=== PATIENT | female | born 1970 | race Caucasian/White ===

== ENCOUNTER 2018-12-27 15:56 | Inpatient (IN) ==
[2018-12-27] MEDS ORDERED: METOCLOPRAMIDE HCL 5 MG/ML VIAL IV ONE (16:10)
[2018-12-27] MEDS ORDERED: diphenhydrAMINE HCL 50 MG/ML VIAL IV ONE (16:10)
[2018-12-27] MEDS ORDERED: NORMAL SALINE 1,000 ML IV ONE ×2 (16:10→17:00)
--- NOTE | 2018-12-27 16:14 | ERNOTE ---
<[email or web address] - Last Filed: 12/27/18 19:44> Abdominal HPI - General Chief Complaint: Abdominal Pain Time Seen by Provider: 12/27/18 16:05 Source: patient, family Exam Limitations: no limitations - Immun/Allergies/Home Medications Immunizatons: IMMUNIZATION HX Immunizations Up to Date Yes Allergies/Adverse Reactions: Allergies codeine Allergy (Verified 12/27/18 18:24) egg Allergy (Verified 12/27/18 18:24) ibuprofen Allergy (Verified 12/27/18 18:24) latex Allergy (Verified 12/27/18 18:24) NSAIDS (Non-Steroidal Anti-Inflamma Allergy (Verified 12/27/18 18:24) peanut Allergy (Verified 12/27/18 18:24) sulfamethoxazole [From Septra] Allergy (Verified 12/27/18 18:24) tetracycline [Tetracycline] Allergy (Verified 12/27/18 18:24) trimethoprim [From Novra] Allergy (Verified 12/27/18 18:24) wheat Allergy (Verified 12/27/18 18:24) Home Medications: HOME MEDICATIONS Aspirin [Aspirin Chewable] 81 mg PO DAILY 08/06/13 [Last Taken Unknown] Hydrochlorothiazide 25 mg PO DAILY 08/06/13 [Last Taken Unknown] Levothyroxine Sodium [Synthroid] 50 mcg PO DAILY 08/06/13 [Last Taken Unknown] Montelukast Sodium [Singulair] 10 mg PO DAILY 08/06/13 [Last Taken Unknown] Multivitamin [Multi Vitamin Daily] 1 each PO DAILY 08/06/13 [Last Taken Unknown] Loratadine [Claritin] 10 mg PO DAILY 12/27/18 [Last Taken Unknown] Pantoprazole Sodium [Protonix] 40 mg PO DAILY 12/27/18 [Last Taken Unknown] Semaglutide [Ozempic] 0.5 mg SQ .WEEKLY 12/27/18 [Last Taken Unknown] - History of Present Illness Narrative: Patient was eating supper at a restaurant and had a relatively sudden and sharp abdominal pain in the lower abdomen down to the suprapubic region. She rates the pain as severe and has accompanying nausea and vomiting with it. Timing: constant, intermittent Quality: severe, sharpness Activities at Onset: none Associated Symptoms: Present: nausea, vomiting Prior Abdominal Problems: Present: none Review of Systems - Review of Systems Constitutional: Present: See HPI EYE: Present: no symptoms reported ENT: Present: no symptoms reported Respiratory: Present: no symptoms reported Cardiology: Present: no symptoms reported Gastrointestinal/Abdominal: Present: See HPI Genitourinary: Present: no symptoms reported Musculoskeletal: Present: no symptoms reported Skin: Present: no symptoms reported Neurological: Present: no symptoms reported Endocrine: Present: no symptoms reported Hematologic/Lymphatic: Present: no symptoms reported Psych: Present: no symptoms reported Medical History (Updated 12/27/18 @ 16:13 by Ruiz Contreras DO) H/O: hysterectomy Surgical History: Surgical History (Updated 12/27/18 @ 16:13 by Ruiz Contreras DO) History of appendectomy History of cholecystectomy Social History: Tobacco: Smoking Status: Never smoker Physical Exam - Physical Exam General Appearance: Present: wd/wn, alert, moderate distress, severe distress Head Exam: Present: normal inspection, no evidence of injury Eye Exam: Normal inspection: bilateral, PERRL: bilateral Ears, Nose, Throat: Present: normal ENT inspection, H, normal pharynx Neck: Present: normal inspection, nontender Respiratory: Present: no respiratory distress, normal breath sounds, no accessory muscle use, chest nontender, lungs clear Cardiovascular/Chest: Present: regular rate, rhythm, no murmur, normal peripheral pulses Gastrointestinal/Abdominal: Present: normal bowel sounds, nondistended, soft, no organomegaly, tenderness - Lower abdominal and suprapubic region Rectal Exam: Present: deferred Back Exam: Present: normal inspection, normal range of motion Extremity Exam: Present: normal inspection, non-tender, no edema, normal range of motion Neurological Exam: Present: alert, oriented, normal mood/affect Skin Exam: Present: normal color, warm/dry Lymphatic Exam: Present: no adenopathy Progress - Results and Orders Patient's Lab Results:: I have reviewed the patient's lab results. - Vital Signs Patient's Vital Signs:: I have reviewed the patient's vital signs. Vital Signs: Vital Signs 12/27/18 16:02 12/27/18 16:08 Temperature 36.8 C Pulse Rate 72 Respiratory Rate 14 Blood Pressure 76/52 L 133/64 O2 Sat by Pulse Oximetry 99 - X-Ray X-Ray #1 X-Ray: abdomen Interpretation: Reviewed by me - Progress/Reassessment Chief Complaint: Abdominal Pain - Transfer of Care Physician Sign Out: Ruiz Contreras Receiving Physician: Jose Jones Expected Disposition: Discharge Plan - Plan Plan: Patient turned over to Dr. Jones for final disposition Departure Clinical Impression: Colitis, Intractable abdominal pain, Intractable nausea and vomiting - Departure Disposition: Still a patient Condition: Stable <Jose Jones - Last Filed: 12/27/18 22:35> Abdominal HPI - Immun/Allergies/Home Medications Immunizatons: IMMUNIZATION HX Immunizations Up to Date Yes Medical History (Updated 12/27/18 @ 21:43 by Jose Jones DO) H/O: hysterectomy Surgical History: Surgical History (Updated 12/27/18 @ 16:13 by Ruiz Contreras DO) History of appendectomy History of cholecystectomy Social History: Tobacco: Smoking Status: Never smoker Physical Exam - Physical Exam General Appearance: Present: wd/wn, alert, moderate distress Gastrointestinal/Abdominal: Present: normal bowel sounds, tenderness - More lower abdominal but pain throughout the colon Neurological Exam: Present: alert, oriented Skin Exam: Present: normal color, warm/dry Progress - Results and Orders Patient's Lab Results:: I have reviewed the patient's lab results. - Vital Signs Patient's Vital Signs:: I have reviewed the patient's vital signs. Vital Signs: Vital Signs 12/27/18 16:02 12/27/18 16:08 12/27/18 16:30 Temperature 36.8 C Pulse Rate 72 89 Respiratory Rate 14 19 Blood Pressure 76/52 L 133/64 130/59 O2 Sat by Pulse Oximetry 99 97 12/27/18 17:00 12/27/18 17:31 12/27/18 18:00 Temperature Pulse Rate 76 70 71 Respiratory Rate 11 L 18 15 Blood Pressure 125/70 131/53 128/68 O2 Sat by Pulse Oximetry 96 96 98 12/27/18 19:10 12/27/18 20:20 12/27/18 21:04 Temperature Pulse Rate 64 70 70 Respiratory Rate 15 23 H 15 Blood Pressure 108/50 127/36 132/79 O2 Sat by Pulse Oximetry 94 95 97 - CT/Ultrasound CT/Ultrasound Narrative: CT abdomen pelvis with IV and oral contrast. Mild pancolitis infectious versus inflammatory - Progress/Reassessment Progress:: Improved Progress Note-Subjective: 12/27/18 21:35 I spoke with the patient about her history of when she has been diagnosed with is irritable bowel syndrome but also had precancerous polyps and has had multiple colonoscopies. The last to 2 years ago and 2 to 3 years before that have been clear. I asked her if she has had any biopsies concerning for inflammatory bowel or celiac and she did not believe she had. She states she did have blood tests for celiac with her digital tech 2 to 3 years ago and states her digital tech was surprised that she did not have positive blood test for celiac. I talked to her about being admitted being n.p.o. and continue on pain meds and antinausea meds and patient agreed. Spoke with Dr. Martinez and he agrees with observation admit for pain control and nausea control.
[2018-12-27 16:39] LABS: Hematocrit 44.9 % (37.0-47.0); Hemoglobin 15.3 gm/dL (12.5-16.0); Mean Cell Volume 90.2 fl (78-100); Mean Corpuscular Hemoglobin 30.7 pg (27-31); Mean Corpuscular Hgb Conc 34.1 g/dl (32-36); Mean Platelet Volume 10.9 fl (8-12.5); Neutrophil # 13.8 K/mm3 (1.3-6.0); Neutrophil % 84.3 % (42-75.0); Platelet Count 299 K/mm3 (150-450); Red Blood Count 4.98 M/mm3 (4.2-5.4); Red Cell Distribution Width 13.3 % (11.5-14.0); White Blood Count 16.4 K/mm3 (4.0-10.5)
[2018-12-27 16:40] LABS: Urine Bilirubin Negative (NEGATIVE); Urine Blood Negative /ul (NEGATIVE); Urine Ketone 50 mg/dL (NEGATIVE); Urine Nitrite Negative (NEGATIVE); Urine Protein Negative (NEGATIVE); Urine Urobilinogen Normal (NORMAL)
[2018-12-27 16:46] LABS: Urine Appearance Cloudy (CLEAR); Urine Color Yellow
[2018-12-27 16:47] LABS: Urine Bacteria 1+; Urine RBC None Seen /hpf (0-5); Urine WBC 0-5 /hpf (0-5)
[2018-12-27 16:52] LABS: Anion Gap 11.8 mmol/L (6.8-13.8); BUN/Creatinine Ratio 9.9 (9.0-21.6); Bilirubin, Total 0.6 mg/dL (0.0-1.1); Ca. Corrected For Albumin 8.9 mg/dL (8.4-10.2); Calcium * 9.2 mg/dL (7.9-10.9); Magnesium 2.1 mg/dL (1.2-2.8); Potassium 2.8 mmol/L (3.4-4.6); Total Protein 7.8 gm/dL (6.2-8.2)
[2018-12-27] MEDS ORDERED: DIATRIZOATE MEGLUMINE, SODIUM 30 ML BTL PO ONE (16:52)
[2018-12-27] MEDS ORDERED: ONDANSETRON HCL/PF 2 MG/ML VIAL IV ONE ×2 (17:33→18:17)
[2018-12-27] MEDS ORDERED: MORPHINE SULFATE 4 MG/ML SYRG IV ONE (18:17)
[2018-12-27] MEDS ORDERED: MORPHINE SULFATE 2 MG/ML DISP.SYRIN IV ONE (21:06)
[2018-12-27] MEDS ORDERED: PROCHLORPERAZINE EDISYLATE 5 MG/ML VIAL IV ONE (21:06)
[2018-12-27] MEDS ORDERED: MORPHINE SULFATE 2 MG/ML DISP.SYRIN IV PRN (21:50)
[2018-12-27] MEDS: NORMAL SALINE 1,000 ML IV PRN (21:58)
[2018-12-27] MEDS ORDERED: ONDANSETRON HCL/PF 2 MG/ML VIAL IV PRN (23:12)
[2018-12-28] MEDS: NORMAL SALINE 1,000 ML IV PRN ×2 (03:07→08:47)
--- NOTE | 2018-12-28 10:58 | HP ---
Chief Complaint - Chief Complaint Date of Service: 12/28/18 Time of Service: 10:47 Chief Complaint: abdominal pain, nausea/vomiting History of Present Illness: 48-year-old female with history of [id number] diabetes presented to the ER yesterday evening for abrupt onset abdominal pain. Patient started having nausea and vomiting with the onset of the pain in the afternoon following a meal. She has had significant GI work-up in the past for possible celiac disease versus other allergies and thinks she has a history of IBS which has not officially been diagnosed but otherwise is fairly healthy. CT scan of the ER showed her to have a mild diffuse bowel wall thickening without perforation consistent with inflamed bowel. Unsure if the inflammation is caused from infectious versus autoimmune versus allergy the patient is starting to feel better currently when seen today. She still has significant tenderness to her abdomen but is no longer nauseous and vomited and is not vomiting. Labs showed her to have an elevated white count 16.4 with a left shift to 84%. She was also found to be hypokalemic at 2.8. Her vital signs are stable and she has been afebrile. She has not had a bowel movement in 3 days, she denies diarrhea. No blood in her stool with her last bowel movement. Medical History (Updated 12/27/18 @ 23:16 by Nu Medina RN) Allergic to eggs Food allergy, peanut Hx of diabetes mellitus Wheat allergy Surgical History: Surgical History (Updated 12/27/18 @ 23:18 by Nu Medina RN) H/O: hysterectomy (Acute) Delivery by section History of appendectomy History of cholecystectomy History of sinus surgery Family History: Family History (Updated 12/27/18 @ 22:49 by Nu Medina RN) Father Hypertension Other COPD (chronic obstructive pulmonary disease) Social History: (Last Reviewed 12/27/18 @ 22:53 by Nu Medina RN) Tobacco: Smoking Status: Never smoker Review Of Systems (GEN) - Review of Systems Generalized/Overall Review: Absent: Chills, Fever EENTM: Present: No Symptoms Reported Respiratory: Absent: Cough, Shortness of Breath Cardiac: Present: Other - Chest pressure. Absent: Chest Pain, Edema, Palpitations Abdominal: Present: Nausea, Vomiting, Abdominal Pain, Constipation. Absent: Hematemesis, Diarrhea, Melena, Bright blood from rectum Genitourinary: Absent: Burning - Not, Itching, Urgency, Frequency - Plan April Musculoskeletal: Present: No Symptoms Reported Neurological: Absent: Headache - is okay I will thank you Skin: Present: No Symptoms Reported Endocrine: Present: No Symptoms Reported Immunizations: IMMUNIZATION HX Immunizations Up to Date Yes Allergies/Adverse Reactions: Allergies Allergy/AdvReac Type Severity Reaction Status Date / Time codeine Allergy Severe Vomiting Verified 12/27/18 22:38 egg Allergy Severe Vomiting Verified 12/27/18 22:38 ibuprofen Allergy Severe Vomiting Verified 12/27/18 22:38 NSAIDS (Non-Steroidal Allergy Severe Vomiting Verified 12/27/18 22:38 Anti-Inflamma peanut Allergy Severe Vomiting Verified 12/27/18 22:38 sulfamethoxazole Allergy Severe Hives Verified 12/27/18 22:38 [From ] tetracycline [Tetracycline] Allergy Severe Hives Verified 12/27/18 22:38 trimethoprim [From ] Allergy Severe Hives Verified 12/27/18 22:38 wheat Allergy Severe Vomiting Verified 12/27/18 22:38 latex Allergy Intermediate Hives Verified 12/27/18 22:38 Home Medications: HOME MEDICATIONS Aspirin [Aspirin Chewable] 81 mg PO DAILY 08/06/13 [Last Taken 12/27/18] Hydrochlorothiazide 25 mg PO DAILY 08/06/13 [Last Taken 12/27/18] Levothyroxine Sodium [Synthroid] 50 mcg PO DAILY 08/06/13 [Last Taken 12/27/18] Montelukast Sodium [Singulair] 10 mg PO DAILY PRN 08/06/13 [Last Taken Unknown] Multivitamin [Multi Vitamin Daily] 1 each PO DAILY 08/06/13 [Last Taken 12/27/18] Loratadine [Claritin] 10 mg PO DAILY 12/27/18 [Last Taken 12/27/18] Pantoprazole Sodium [Protonix] 40 mg PO DAILY 12/27/18 [Last Taken 12/27/18] Semaglutide [Ozempic] 0.5 mg SQ .WEEKLY 12/27/18 [Last Taken Unknown] Exam - Exam Vital Signs: Vital Signs - Last Taken Temp 37.1 C 12/28/18 06:40 Pulse 80 12/28/18 06:40 Resp 18 12/28/18 06:40 BP 125/63 12/28/18 06:40 Pulse Ox 92 L 12/28/18 06:40 Constitutional: Present: Alert, Oriented x3, Cooperative, Obese ENT Exam: Present: hearing grossly normal. Absent: nasal drainage, pharyngeal erythema Eye Exam: bilateral eye: normal inspection, PERRL Neck: Present: non-tender, full range of motion, supple Back Exam: Present: normal inspection, no CVA tenderness Breasts: Present: Exam deferred Respiratory: Present: lungs clear, normal breath sounds, no respiratory distress Cardiovascular/Chest: Present: normal peripheral pulses, regular rate, rhythm, no murmur Abdomen: Present: Normal bowel sounds, soft, tender - Diffusely tender. Absent: guarding /Rectal: Present: Exam deferred Skin Exam: Present: normal color, warm/dry Appearance: Present: appropriate appearance, appropriate insight, neat Eye contact: Present: cooperative, good eye contact Thoughts: Present: normal thought pattern, normal mood /affect Diagnostic Studies: Abnormal Lab Results 12/27/18 12/27/18 12/27/18 Range/Units 16:24 16:33 16:33 WBC 16.4 H (4.0-10.5) K/mm3 Immature Gran % (Auto) 0.60 H (0.001-0.429) % Immature Gran # (Auto) 0.10 H (0.000-0.0310) K/mm3 Neutrophils % 84.3 H (42-75.0) % Lymphocytes % 10.0 L (20-51) % Neutrophils # 13.8 H (1.3-6.0) K/mm3 Potassium 2.8 L (3.4-4.6) mmol/L Est GFR (Non-Af Amer) 50 L D (60-130) mL/min Random Glucose 145 H (70-110) mg/dL Ur Leukocyte Esterase 75 H (NEGATIVE) /ul Ur Epithelial Cells 10-25 H (0-5) /hpf Urine Bacteria 1+ H (NONE) Microbiology 12/27/18 16:24 Urine Culture - Preliminary Urine,Clean Catch No Growth Laboratory Results WBC 16.4 K/mm3 (4.0-10.5) H 12/27/18 16:33 RBC 4.98 M/mm3 (4.2-5.4) 12/27/18 16:33 Hgb 15.3 gm/dL (12.5-16.0) 12/27/18 16:33 Hct 44.9 % (37.0-47.0) 12/27/18 16:33 MCV 90.2 fl (78-100) 12/27/18 16:33 MCH 30.7 pg (27-31) 12/27/18 16:33 MCHC 34.1 g/dl (32-36) 12/27/18 16:33 RDW 13.3 % (11.5-14.0) 12/27/18 16:33 Plt Count 299 K/mm3 (150-450) 12/27/18 16:33 MPV 10.9 fl (8-12.5) 12/27/18 16:33 Immature Gran % (Auto) 0.60 % (0.001-0.429) H 12/27/18 16:33 Immature Gran # (Auto) 0.10 K/mm3 (0.000-0.0310) H 12/27/18 16:33 84.3 % (42-75.0) H 12/27/18 16:33 10.0 % (20-51) L 12/27/18 16:33 4.4 % (0.0-9) 12/27/18 16:33 0.2 % (0.0-3.0) 12/27/18 16:33 0.5 % (0.0-1.0) 12/27/18 16:33 Nucleated RBC % 0.0 k/mm3 (0-1) 12/27/18 16:33 13.8 K/mm3 (1.3-6.0) H 12/27/18 16:33 1.65 k/mm3 (1.5-3.5) 12/27/18 16:33 0.7 k/mm3 (0.0-1.0) 12/27/18 16:33 0.0 k/mm3 (0.0-0.7) 12/27/18 16:33 Absolute Basophils 0.1 k/mm3 (0.0-0.1) 12/27/18 16:33 Sodium 139 mmol/L (132-142) 12/27/18 16:33 140 mmol/L (130-142) 12/27/18 16:33 Potassium 2.8 mmol/L (3.4-4.6) L 12/27/18 16:33 Chloride 100 mmol/L (97-106) 12/27/18 16:33 Carbon Dioxide 30.0 mmol/L (24-32.6) 12/27/18 16:33 11.8 mmol/L (6.8-13.8) 12/27/18 16:33 BUN 12 mg/dL (3-23) 12/27/18 16:33 1.21 mg/dL (0.4-1.4) 12/27/18 16:33 Est GFR (Non-Af Amer) 50 mL/min (60-130) L D 12/27/18 16:33 9.9 (9.0-21.6) 12/27/18 16:33 145 mg/dL (70-110) H 12/27/18 16:33 1.9 mmol/L (0.4-2.0) 12/27/18 16:33 Calcium 9.2 mg/dL (7.9-10.9) 12/27/18 16:33 Calcium Adj for Albumin 8.9 mg/dL (8.4-10.2) 12/27/18 16:33 Magnesium 2.1 mg/dL (1.2-2.8) 12/27/18 16:33 0.6 mg/dL (0.0-1.1) 12/27/18 16:33 AST 24 U/L (0-48) 12/27/18 16:33 ALT 50 U/L (19-67) 12/27/18 16:33 135 U/L (50-170) 12/27/18 16:33 7.8 gm/dL (6.2-8.2) 12/27/18 16:33 4.0 gm/dl (3.4-5.0) 12/27/18 16:33 172 U/L (73-393) 12/27/18 16:33 Yellow 12/27/18 16:24 Cloudy (CLEAR) 12/27/18 16:24 7.0 pH (5.0-7.0) 12/27/18 16:24 Ur Specific [place] 1.020 SP.GR. (1.005-1.010) 12/27/18 16:24 Negative mg/dL (NEGATIVE) 12/27/18 16:24 Negative mg/dL (NEGATIVE) 12/27/18 16:24 50 mg/dL (NEGATIVE) 12/27/18 16:24 Negative /ul (NEGATIVE) 12/27/18 16:24 Negative (NEGATIVE) 12/27/18 16:24 Negative mg/dl (NEGATIVE) 12/27/18 16:24 Normal EU/dl (NORMAL) 12/27/18 16:24 Ur Leukocyte Esterase 75 /ul (NEGATIVE) H 12/27/18 16:24 None seen /hpf (0-5) 12/27/18 16:24 0-5 /hpf (0-5) 12/27/18 16:24 Ur Epithelial Cells 10-25 /hpf (0-5) H 12/27/18 16:24 1+ (NONE) H 12/27/18 16:24 Culture to follow 12/27/18 16:24 Assessment/Plan - Narrative Narrative: 48-year-old female brought in for acute onset pancolitis, etiology unknown at this time. White blood count shows leukocytosis with left shift. Rapid onset so unlikely to be infectious but her white count does make me concerned. She has been afebrile and her vital signs been stable. Repeat CBC in the morning. If her count continues to be elevated or if her symptoms worsen then will likely start her on antibiotics. Patient currently n.p.o. requiring IV hydration and IV pain medication due to her intractable abdominal pain. Will increase her diet as tolerated when appropriate but currently she is unable to keep anything down since the onset of pain. Zofran ordered as needed. Replacing potassium in IV fluids. Blood pressure stable, currently holding Hydrocort thiazide. We will add PRN IV hydralazine as needed for elevated pressures but currently not needed Holding diabetic medication, will check blood sugars throughout the day. We will start on sliding scale if needed Holding chronic meds while NPO. SCDs for DVT ppx. Nurse will call with questions or concerns. - Assessment/Plan (1) Colitis Problem: Acute (2) Intractable abdominal pain Problem: Acute (3) Intractable nausea and vomiting Problem: Resolved (4) Hypokalemia Problem: Acute (5) HTN (hypertension) Problem: Acute (6) Diabetes Problem: Acute
[2018-12-28] MEDS: POTASSIUM CHLORIDE 40 MEQ in NORMAL SALINE 1,000 ML IV SCH ×2 (12:01→21:26)
[2018-12-29] MEDS: POTASSIUM CHLORIDE 40 MEQ in NORMAL SALINE 1,000 ML IV SCH ×3 (05:14→19:19)
[2018-12-29 06:06] LABS: Hematocrit 38.5 % (37.0-47.0); Hemoglobin 12.8 gm/dL (12.5-16.0); Mean Cell Volume 93.7 fl (78-100); Mean Corpuscular Hemoglobin 31.1 pg (27-31); Mean Corpuscular Hgb Conc 33.2 g/dl (32-36); Mean Platelet Volume 11.1 fl (8-12.5); Neutrophil # 11.4 K/mm3 (1.3-6.0); Neutrophil % 75.9 % (42-75.0); Platelet Count 250 K/mm3 (150-450); Red Blood Count 4.11 M/mm3 (4.2-5.4); Red Cell Distribution Width 13.8 % (11.5-14.0)
[2018-12-29 06:12] LABS: Anion Gap 10.4 mmol/L (6.8-13.8); BUN/Creatinine Ratio 4.4 (9.0-21.6); Carbon Dioxide 26.5 mmol/L (24-32.6); Estimated Creat Clear 61.9; Potassium 3.9 mmol/L (3.4-4.6)
--- NOTE | 2018-12-29 15:47 | PN ---
Subjective - Date and Time Seen Date: 12/29/18 Time: 15:47 Subjective Narrative: Patient feeling better today, abdominal pain improving. No nausea or vomiting overnight. Vital signs are stable and she continues to be afebrile. White count improved, potassium back to normal level. Patient still concerned that she is tender but states that she is not in the same pain that she was prior to coming in. Objective - Review of Systems Generalized/Overall Review: Denies: Weakness EENTM: Reports: No Symptoms Reported Respiratory: Reports: No Symptoms Reported Cardiac: Denies: Chest Pain, Edema, Palpitations Abdominal: Reports: Abdominal Pain, Constipation. Denies: Nausea, Vomiting Genitourinary Symptoms: Reports: No Symptoms Reported Musculoskeletal Complaints: Reports: No Symptoms Reported Neurological: Reports: No Symptoms Reported Skin: Reports: No Symptoms Reported Endocrine: Reports: No Symptoms Reported - Vitals Vitals: Last Vital Signs Temp 36.5 C 12/29/18 14:34 Pulse 83 12/29/18 14:34 Resp 20 12/29/18 14:34 BP 119/79 12/29/18 14:34 Pulse Ox 96 12/29/18 14:34 - Abnormal Lab Findings Abnormal Lab Findings: Abnormal Lab Results 12/29/18 12/29/18 Range/Units 05:37 05:37 WBC 15.0 H (4.0-10.5) K/mm3 RBC 4.11 L (4.2-5.4) M/mm3 MCH 31.1 H (27-31) pg Immature Gran # (Auto) 0.06 H (0.000-0.0310) K/mm3 Neutrophils % 75.9 H (42-75.0) % Lymphocytes % 14.5 L (20-51) % Neutrophils # 11.4 H (1.3-6.0) K/mm3 Monocytes # 1.3 H (0.0-1.0) k/mm3 Chloride 109 H (97-106) mmol/L BUN/Creatinine Ratio 4.4 L (9.0-21.6) - Exam Constitutional: Present: Alert, Oriented x3, Cooperative, Well developed, Obese ENT Exam: Present: hearing grossly normal. Absent: nasal drainage, pharyngeal erythema Neck: Present: non-tender, supple Breasts: Present: Exam deferred Respiratory: Present: lungs clear, normal breath sounds, no respiratory distress Cardiovascular/Chest: Present: regular rate, rhythm, no murmur. Absent: edema Abdomen: Present: Normal bowel sounds, soft, tender - diffusely tender through out four quadrants, improved. Absent: guarding, rigidity, rebound tenderness Skin Exam: Present: normal color, warm/dry Neurologic: Present: no motor/sensory deficits, alert, normal mood/affect, oriented x 3 Appearance: Present: appropriate appearance, appropriate insight Eye contact: Present: cooperative, good eye contact Thoughts: Present: normal thought pattern, normal mood /affect Assessment/Plan Plan Narrative: 48-year-old female brought in for acute onset pancolitis, does not appear to be infectious. White blood count shows leukocytosis but improved overnight. She has been afebrile and her vital signs been stable. Repeat CBC in the morning. Patient currently n.p.o., will advance her diet to clears if she tolerates this we will stop her IV hydration. Zofran ordered as needed. Hypokalemia resolved Blood pressure stable, restarted home meds now that she is having her diet advanced. We will restart diabetic medication, will check blood sugars throughout the day. Restarting her chronic meds. SCDs for DVT ppx. Nurse will call with questions or concerns. Likely home tomorrow if she continues to improve as she did today. - Problems/Diagnosis (1) Colitis Problem: Acute (2) Intractable abdominal pain Problem: Acute (3) Intractable nausea and vomiting Problem: Resolved (4) Hypokalemia Problem: Resolved (5) HTN (hypertension) Problem: Resolved (6) Diabetes Problem: Chronic
[2018-12-29] MEDS ORDERED: POLYETHYLENE GLYCOL 3350 17 GM PACKET PO ONE (18:01)
[2018-12-29] MEDS ORDERED: MONTELUKAST SODIUM 10 MG TABLET PO PRN (20:12)
[2018-12-30] MEDS ORDERED: LEVOTHYROXINE SODIUM 50 MCG TABLET PO SCH (07:00)
[2018-12-30] MEDS ORDERED: ACETAMINOPHEN 500 MG TABLET PO PRN (07:07)
[2018-12-30] MEDS ORDERED: HYDROCHLOROTHIAZIDE 25 MG TABLET PO SCH (09:00)
[2018-12-30] MEDS ORDERED: PANTOPRAZOLE SODIUM 40 MG TABLET.EC PO SCH (09:00)
[2018-12-30] MEDS ORDERED: ASPIRIN 81 MG TAB.CHEW PO SCH (09:00)
--- NOTE | 2018-12-30 12:42 | DS ---
(1) Colitis Problem: Acute (2) Intractable abdominal pain Problem: Resolved (3) Intractable nausea and vomiting Problem: Resolved (4) Hypokalemia Problem: Resolved (5) HTN (hypertension) Problem: Chronic (6) Diabetes Problem: Chronic Date of Discharge:: 12/30/18 Description of Stay: 48-year-old female with sudden onset diffuse abdominal pain brought into the hospital due to pancolitis seen on CT scan. Patient has history of chronic GI upset. She was brought in and started on IV fluids and IV pain medicine for management. Did not look to be infectious in nature and so bowel rest was decided, no antibiotics. Patient was afebrile her vital signs are stable here. Patient started tolerating clears 36 hours after admission, and was able to do well with him until being discharged. Patient did have a bowel movement prior to discharge. Patient does feel bloated though and recommend simethicone [id number]. Will refer patient to GI up at the [facility] for further work-up of her abdominal/GI issues. Concerns for allergy versus autoimmune. Patient was in agreement the treatment plan and will follow up with them as directed. No changes were made to her chronic medications, patient was in agreement with the treatment plan. Pertinent labs include her to have an elevated white count at 16.4 on day of admission which trended downward. She also had a low potassium at 2.8 which was replaced and came back at 3.9. Procedures Performed: none Results and Findings: Lab Pending Results 12/27/18 16:24: Urine Color Yellow, Urine Appearance Cloudy, Urine pH 7.0, Ur Specific [place] 1.020, Urine Protein Negative, Urine Glucose (UA) Negative, Urine Ketones 50, Urine Blood Negative, Urine Nitrate Negative, Urine Bilirubin Negative, Urine Urobilinogen Normal, Ur Leukocyte Esterase 75 H, Urine RBC None seen, Urine WBC 0-5, Ur Epithelial Cells 10-25 H, Urine Bacteria 1+ H, Urine Culture Comments Culture to follow 12/27/18 16:33: WBC 16.4 H, RBC 4.98, Hgb 15.3, Hct 44.9, MCV 90.2, MCH 30.7, MCHC 34.1, RDW 13.3, Plt Count 299, MPV 10.9, Immature Gran % (Auto) 0.60 H, Immature Gran # (Auto) 0.10 H, Neutrophils % 84.3 H, Lymphocytes % 10.0 L, Monocytes % 4.4, Eosinophils % 0.2, Basophils % 0.5, Nucleated RBC % 0.0, Neutrophils # 13.8 H, Lymphocytes # 1.65, Monocytes # 0.7, Eosinophils # 0.0, Absolute Basophils 0.1 12/27/18 16:33: Sodium 139, Plasma Sodium 140, Potassium 2.8 L, Chloride 100, Carbon Dioxide 30.0, Anion Gap 11.8, BUN 12, Creatinine 1.21, Est GFR (Non-Af Amer) 50 L D, BUN/Creatinine Ratio 9.9, Random Glucose 145 H, Calcium 9.2, Calcium Adj for Albumin 8.9, Magnesium 2.1, Total Bilirubin 0.6, AST 24, ALT 50, Alkaline Phosphatase 135, Total Protein 7.8, Albumin 4.0, Lipase 172 12/27/18 16:33: Lactic Acid, Venous 1.9 12/29/18 05:37: WBC 15.0 H, RBC 4.11 L, Hgb 12.8, Hct 38.5, MCV 93.7, MCH 31.1 H, MCHC 33.2, RDW 13.8, Plt Count 250, MPV 11.1, Immature Gran % (Auto) 0.40, Immature Gran # (Auto) 0.06 H, Neutrophils % 75.9 H, Lymphocytes % 14.5 L, Monocytes % 8.4, Eosinophils % 0.5, Basophils % 0.3, Nucleated RBC % 0.0, Neutrophils # 11.4 H, Lymphocytes # 2.17, Monocytes # 1.3 H, Eosinophils # 0.1, Absolute Basophils 0.1 12/29/18 05:37: Sodium 142, Plasma Sodium 142, Potassium 3.9 D, Chloride 109 H, Carbon Dioxide 26.5, Anion Gap 10.4, BUN 4 D, Creatinine 0.90, Est GFR (Non-Af Amer) 70 D, BUN/Creatinine Ratio 4.4 L, Random Glucose 110, Calcium 8.0 Discharge Location: Home Disposition: Home self-care Condition: Stable Discharge Activity: Activity as tolerated Discharge Diet: Consistent carbs - recommend metamucil and simethicone Complete Home Medications List: Complete Home Medication List: Aspirin [Aspirin Chewable] 81 mg PO DAILY 05/16/14 Hydrochlorothiazide 25 mg PO DAILY 08/06/13 Levothyroxine Sodium [Synthroid] 50 mcg PO DAILY 08/06/13 Montelukast Sodium [Singulair] 10 mg PO DAILY PRN 08/06/13 Multivitamin [Multi-Vitamin Daily] 1 each PO DAILY 08/06/13 Loratadine [Claritin] 10 mg PO DAILY 12/27/18 Pantoprazole Sodium [Protonix] 40 mg PO DAILY 12/27/18 Semaglutide [Ozempic] 0.5 mg SQ .WEEKLY 12/27/18
[2018-12-30 14:13] VITALS: BP 118/72
== END 2018-12-30 14:00 | disposition home or self-care (01) | DRG 392 ==
LOC: ER 15:56 → MS 15:56
PROVIDERS: ADMIT Family Medicine; ATTEND Family Medicine
CPT/HCPCS: 36415; 74177; 80048; 80053; 81001; 83605; 83690; 83735; 85025; 87086; 93005; 96374; 96375; 96376; 99285; G0378; J2405; Q9963; Q9967